=== PATIENT | male | born 1995 | race Hispanic/Latino ===

== ENCOUNTER 2016-11-07 20:37 | Emergency (ER) | payer BC ==
[2016-11-07 20:44] VITALS: RESP 18; TEMP 98.3; O2SAT 100
[2016-11-07] MEDS ORDERED: DiphenhydrAMINE 50 mg/ml Inj ONE (20:54)
--- NOTE | 2016-11-07 20:54 | ED PDOC ---
HPI: Allergic Reaction Time Seen by Provider: 11/07/16 20:52 Chief Complaint (Nursing): Allergic Reaction Chief Complaint (Provider): Allergic Reaction History Per: Patient History/Exam Limitations: no limitations Onset/Duration Of Symptoms: Sudden Onset Current Symptoms Are (Timing): Still Present Possible Cause: Unknown Associated Symptoms: Skin Rash, Dizziness. denies: Dyspnea, Chest Pain Home/EMS Treatment: None Additional Complaint(s): David Garland is a 21 y/o male presenting to the ER on 11/07/2016 with a sudden onset of a rash due to a possible allergic reaction from an unknown substance. Patient reports his lips were swollen, which spontaneously resolved prior to arrival, but is currently experiencing a rash to his torso, face, and arms bilaterally. Patient admits to feeling moderate dizzy upon arrival but denies any associated shortness of breath, chest pain, swelling to his tongue or extremities, abdominal pain, vomiting, diarrhea, or pruritic throat. Past Medical History Reviewed: Historical Data, Nursing Documentation, Vital Signs Vital Signs: Last Vital Signs Temp 98.3 F 11/07/16 20:42 Pulse 70 11/07/16 20:42 Resp 18 11/07/16 20:42 BP 130/77 11/07/16 20:42 Pulse Ox 100 11/07/16 20:42 - Medical History PMH: No Chronic Diseases - Surgical History Other surgeries: shoulder surgery - Family History Family History: States: Unknown Family Hx - Social History Current smoker - smoking cessation education provided: No Alcohol: None Drugs: Denies - Home Medications Home Medications: Ambulatory Orders Medication Instructions Recorded Famotidine [Pepcid] 20 mg PO BID #16 tab 11/07/16 predniSONE [predniSONE Tab] 20 mg PO BID #8 tab 11/07/16 - Allergies Allergies/Adverse Reactions: Allergies Allergy/AdvReac Type Severity Reaction Status Date / Time tree nut Allergy RASH Verified 11/07/16 20:42 Review of Systems ENT: Negative for: Throat Pain, Throat Swelling Cardiovascular: Positive for: Light Headedness. Negative for: Chest Pain Respiratory: Negative for: Shortness of Breath Gastrointestinal: Negative for: Vomiting, Abdominal Pain, Diarrhea Skin: Positive for: Rash Neurological: Positive for: Dizziness Physical Exam - Reviewed Nursing Documentation Reviewed: Yes Vital Signs Reviewed: Yes - Physical Exam Appears: Positive for: Non-toxic, No Acute Distress Head Exam: Positive for: ATRAUMATIC, NORMOCEPHALIC Skin: Positive for: Rash ((+) blanchable, diffuse hives around face arms and chest) Eye Exam: Positive for: Normal appearance ENT: Positive for: Normal ENT Inspection ((-) swelling to uvula, tongue, or face ), Other Neck: Positive for: Normal, Painless ROM, Supple Cardiovascular/Chest: Positive for: Regular Rate, Rhythm. Negative for: Murmur Respiratory: Positive for: Normal Breath Sounds. Negative for: Respiratory Distress Gastrointestinal/Abdominal: Positive for: Normal Exam, Soft. Negative for: Tenderness Extremity: Positive for: Normal ROM. Negative for: Deformity, Swelling ((-) swelling to hands or extremities ) Lymphatic: Positive for: Normal Exam ((-) swelling to lymph nodes ) Neurologic/Psych: Positive for: Alert, Oriented. Negative for: Motor/Sensory Deficits - Laboratory Results Result Diagrams: 11/07/16 21:15 11/07/16 21:15 - ECG O2 Sat by Pulse Oximetry: 100 Disposition - Clinical Impression Clinical Impression: Allergic reaction - Patient ED Disposition Is Patient to be Admitted: No Counseled Patient/Family Regarding: Studies Performed, Diagnosis, Need For Followup, Rx Given - Disposition Disposition: Routine/Home Disposition Time: 22:23 Condition: STABLE Prescriptions: Famotidine [Pepcid] 20 mg PO BID #16 tab predniSONE [predniSONE Tab] 20 mg PO BID #8 tab Instructions: Urticaria (ED), Anaphylaxis (ED) Medical Decision Making Medical Decision Makin:52 Initial Impressoin- 21 y/o male with allergic reaction While in the ER, pt appeared faint and became diaphoretic and pale. After provider evaluation, pt admitted to feeling a near-syncopal episode. Pt was moved to a vehicle monitor technician and was given 125 mg solumedrol, 25 mg Pepcid, and 25 mg Benadryl via IV fluids. EKG was subsequently performed, which revealed Bradycardia at 59 bpm but with sinus rhythm. Finger stick was normal. Pt's symptoms improved after being placed on 2L O2 Nasal Cannula and when he drank the orange juice that was provided. Upon further evaluation, pt admits he has a tendency to experience syncope. Vitals are currently stable. Pt will continue to be observed in the ED. Documented by Cielo Ley, acting as a scribe for Jeaneth Mckenzie PA-C All medical record entries made by the Scribe were at my direction and personally dictated by me. I have reviewed the chart and agree that the record accurately reflects my personal performance of the history, physical exam, medical decision making, and the department course for this patient. I have also personally directed, reviewed, and agree with the discharge instructions and disposition.
[2016-11-07] MEDS ORDERED: DiphenhydrAMINE 50 mg/ml Inj IVP STA (21:00)
[2016-11-07] MEDS ORDERED: Sodium Chloride 0.9% 1,000 ML IV STA (21:00)
[2016-11-07 21:27] LABS: BASO % 0.3 % (0.0-2.0); EOS # 0.1 K/uL (0.0-0.7); EOS % 1.1 % (0.0-4.0); HEMOGLOBIN 15.9 g/dL (12.0-18.0); LYMPH # 4.8 K/uL (1.0-4.3); LYMPH % 56.1 % (20.0-40.0); MEAN CELL VOLUME 87.6 fl (80.0-94.0); MEAN CORPUSCULAR HEMOGLOBIN 30.2 pg (27.0-31.0); MEAN CORPUSCULAR HGB CONC 34.4 g/dL (33.0-37.0); MEAN PLATELET VOLUME 7.6 fl (7.2-11.7); MONO # 0.7 K/uL (0.0-0.8); MONO % 8.5 % (0.0-10.0); NEUT # 2.9 K/uL (1.8-7.0); NRBC % 0.1 % (0.0-0.0); RBC 5.27 Mil/uL (4.40-5.90); RED CELL DISTRIBUTION WIDTH 12.5 % (11.5-14.5); WHITE BLOOD COUNT 8.6 K/uL (4.8-10.8)
[2016-11-07 21:39] LABS: ALB/GLOB RATIO 1.5 (1.0-2.1); ALBUMIN 4.8 g/dL (3.5-5.0); ALT/SGPT 45 U/L (21-72); AST/SGOT 36 U/L (17-59); BLOOD UREA NITROGEN 13 mg/dl (9-20); CALCIUM 9.8 mg/dL (8.4-10.2); GFR AFRICAN-AMERICAN > 60; GFR NON-AFRICAN AMERICAN > 60
[2016-11-07 22:31] VITALS: BP 119/66; PULSE 69
--- NOTE | 2016-11-08 23:55 | CARD ---
APPROVED REPORT EKG Measurement Heart [id number] <Conclusion> Sinus bradycardia with sinus arrhythmia Otherwise normal ECG
== END 2016-11-07 22:31 | disposition home or self-care (01) ==
LOC: H.ER 20:37
DX: T78.40XA Allergy, unspecified, initial encounter (principal)
CPT/HCPCS: 80053; 85025; 93005; 96361; 96374; 96375; 99282; J1200; J2930; J7040